=== PATIENT | female | born 1985 | race Caucasian/White ===

== ENCOUNTER 2021-12-15 12:11 | Emergency (ER) | payer OTHER ==
[~2021-12-15] VITALS: Ht 170.1 cm; Wt 67.1 kg
[2021-12-15] MEDS ORDERED: HYDROCODONE-AC1 EAC1 PO (14:10)
== END 2021-12-15 14:12 | disposition home or self-care (01) ==
LOC: ED 12:11
DX: S90.32XA Contusion of left foot, initial encounter (principal); S90.31XA Contusion of right foot, initial encounter; X58.XXXA Exposure to other specified factors, initial encounter; Y93.89 Activity, other specified; Y92.89 Other specified places as the place of occurrence of the external cause; Y99.8 Other external cause status